=== PATIENT | male | born 1935 | race Caucasian/White ===

== ENCOUNTER 2020-04-16 15:44 | Outpatient (RCR) | payer MEDICARE, SELFPAY ==
[2015-01-27 03:07] VITALS: BMI 26.9
== END 2020-04-16 23:59 ==
LOC: IMMUN 15:44
PROVIDERS: PCP Internal Medicine; Referring Provider Family Medicine; Visit Provider Family Medicine
DX: Z23 Encounter for immunization (principal)
CPT/HCPCS: 0011A; 0012A; 91301